=== PATIENT | female | born 1995 | race Two or more races ===

== ENCOUNTER 2020-08-12 23:14 | Outpatient (CLI) | payer OTHER | END 2020-08-13 10:35 | disposition home or self-care (01) | LOC: OBS/DEL 23:14 → EDBD 23:14 → OBS/DEL 08-13 05:44 | PROVIDERS: ATTEND Specialist | DX: O46.8X2 Other antepartum hemorrhage, second trimester (principal); Z20.822 Contact with and (suspected) exposure to COVID-19; Z3A.26 26 weeks gestation of pregnancy ==

== ENCOUNTER 2020-09-27 20:04 | Inpatient (IN) | payer OTHER ==
[~2020-09-27] VITALS: Ht 157.5 cm; Wt 1.8 kg
== END 2020-11-06 10:49 | disposition expired | DRG 786 ==
LOC: OBS/DEL 20:04 → ICU 09-28 10:11 → LDR 09-28 10:11 → ICU 09-29 14:21
PROVIDERS: ADMIT Specialist; ATTEND Specialist
PROC: 4A033R1 Measurement of Arterial Saturation, Peripheral, Percutaneous Approach (ICD-10-PCS; 2020-09-27)
PROC: 3E0F7SF Introduction of Other Gas into Respiratory Tract, Via Natural or Artificial Opening (ICD-10-PCS; 2020-09-28)
PROC: 8E0ZXY6 Isolation (ICD-10-PCS; 2020-09-28)
PROC: XW033E5 Introduction of Remdesivir Anti-infective into Peripheral Vein, Percutaneous Approach, New Technology Group 5 (ICD-10-PCS; 2020-09-29)
PROC: 5A09557 Assistance with Respiratory Ventilation, Greater than 96 Consecutive Hours, Continuous Positive Airway Pressure (ICD-10-PCS; 2020-09-29)
PROC: 0BH17EZ Insertion of Endotracheal Airway into Trachea, Via Natural or Artificial Opening (ICD-10-PCS; 2020-10-03)
PROC: 5A1955Z Respiratory Ventilation, Greater than 96 Consecutive Hours (ICD-10-PCS; 2020-10-03)
PROC: 02HV33Z Insertion of Infusion Device into Superior Vena Cava, Percutaneous Approach (ICD-10-PCS; 2020-10-03)
PROC: 4A1HXFZ Monitoring of Products of Conception, Cardiac Rhythm, External Approach (ICD-10-PCS; 2020-10-05)
PROC: 10D00Z1 Extraction of Products of Conception, Low, Open Approach (ICD-10-PCS; principal; 2020-10-05 20:30)
PROC: 30233N1 Transfusion of Nonautologous Red Blood Cells into Peripheral Vein, Percutaneous Approach (ICD-10-PCS; 2020-10-07)
PROC: 30233M1 Transfusion of Nonautologous Plasma Cryoprecipitate into Peripheral Vein, Percutaneous Approach (ICD-10-PCS; 2020-10-10)
PROC: B54DZZZ Ultrasonography of Bilateral Lower Extremity Veins (ICD-10-PCS; 2020-10-13)
PROC: B24BZZZ Ultrasonography of Heart with Aorta (ICD-10-PCS; 2020-10-13)
PROC: 06HY33Z Insertion of Infusion Device into Lower Vein, Percutaneous Approach (ICD-10-PCS; 2020-10-29)
PROC: 3E0436Z Introduction of Nutritional Substance into Central Vein, Percutaneous Approach (ICD-10-PCS; 2020-11-01)
PROC: 30233R1 Transfusion of Nonautologous Platelets into Peripheral Vein, Percutaneous Approach (ICD-10-PCS; 2020-11-06)
DX: O98.52 Other viral diseases complicating childbirth (principal); U07.1 COVID-19; J15.7 Pneumonia due to Mycoplasma pneumoniae; J12.82 Pneumonia due to coronavirus disease 2019; O14.23 HELLP syndrome (HELLP), third trimester; I50.31 Acute diastolic (congestive) heart failure; O87.1 Deep phlebothrombosis in the puerperium; O88.83 Other embolism in the puerperium; J80 Acute respiratory distress syndrome; N17.0 Acute kidney failure with tubular necrosis; E87.0 Hyperosmolality and hypernatremia; B37.49 Other urogenital candidiasis; I82.493 Acute embolism and thrombosis of other specified deep vein of lower extremity, bilateral; O87.0 Superficial thrombophlebitis in the puerperium; G93.49 Other encephalopathy; O99.52 Diseases of the respiratory system complicating childbirth; Z37.0 Single live birth; Z3A.32 32 weeks gestation of pregnancy; Z20.822 Contact with and (suspected) exposure to COVID-19; O99.02 Anemia complicating childbirth; O72.3 Postpartum coagulation defects; R04.0 Epistaxis; O98.83 Other maternal infectious and parasitic diseases complicating the puerperium; U07.0 Vaping-related disorder; E87.6 Hypokalemia; B96.1 Klebsiella pneumoniae [K. pneumoniae] as the cause of diseases classified elsewhere; D64.9 Anemia, unspecified